=== PATIENT | female | born 1965 | race Caucasian/White ===

== ENCOUNTER 2023-08-24 20:44 | Emergency (ER) | payer OTHER ==
[~2023-08-24] VITALS: Ht 160 cm; Wt 59.0 kg
[2023-08-24 21:13] VITALS: BP 174/93
[2023-08-24] MEDS ORDERED: EUTHYROX50 MCG PO (23:23)
[2023-08-24] MEDS ORDERED: Celexa20 MG PO (23:23)
[2023-08-25] MEDS ORDERED: AMOCLA875 PO (00:32)
== END 2023-08-25 01:01 | disposition home or self-care (01) ==
LOC: ER 20:44
DX: S61.452A Open bite of left hand, initial encounter (principal); S81.852A Open bite, left lower leg, initial encounter; W54.0XXA Bitten by dog, initial encounter; Z23 Encounter for immunization
CPT/HCPCS: 90471; 90715; 99283-25; A9270